=== PATIENT | female | born 1990 | race African-American/Black ===

== ENCOUNTER 2023-04-27 06:19 | Inpatient (IN) | payer MEDICARE ==
[~2023-04-27] VITALS: Ht 172.7 cm; Wt 87.1 kg
[~2023-04-27 06:19] MED LIST: AMLO10TA80 PO; ASPI-1406 PO; CINA90TA MT; COR12 PO; SACU1TAB PO; SEVE800T8 MT
[2023-04-27 06:25] VITALS: O2SAT 97
[2023-04-27] MEDS ORDERED: ONDANSETRON HCL 4MG/2ML INJ IV STA (06:35)
[2023-04-27] MEDS ORDERED: MORPHINE SULFATE 4 MG/ML CPJ (NOT FOR IM USE) IV STA (06:35)
[2023-04-27 08:27] LABS: INR 1.1; PROTHROMBIN TIME 11.6 sec (9.6-11.0)
[2023-04-27 08:32] LABS: ALANINE AMINOTRANSFERASE 16 IU/L (10-49); ASPARTATE AMINOTRANSFERASE 16 IU/L (<34); BILIRUBIN TOTAL 0.3 mg/dL (0.1-1.0); CARBON DIOXIDE 27 mEq/L (21-32); CHLORIDE 99 mEq/L (98-107); GLUCOSE 84 mg/dL (70-105); POTASSIUM 3.3 mEq/L (3.5-5.1); PROTEIN TOTAL 7.4 g/dL (6.0-8.3); SODIUM 138 mEq/L (136-145); UREA NITROGEN BLOOD 28 mg/dL (9-23)
[2023-04-27 08:36] LABS: BASOPHILS % 0.4 % (0.0-2.0); EOSINOPHILS % 1.9 % (0.0-5.0); HEMATOCRIT. 26.2 % (36.0-48.0); LYMPHOCYTES % 14.3 % (20.0-50.0); MEAN CORPUSCULAR HEMOGLOBIN 26.1 pg (28.0-32.0); MEAN CORPUSCULAR HGB CONC 30.6 g/dL (31.0-37.0); MEAN CORPUSCULAR VOLUME 85.3 fL (81.0-99.0); MEAN PLATELET VOLUME 7.7 fl (7.4-10.4); MONOCYTES % 11.9 % (2.0-8.0); NEUTROPHILS % 71.5 % (40.0-76.0); PLATELET 230 x1000/uL (130-400); RED BLOOD CELL COUNT 3.07 mill/uL (4.2-5.4); RED CELL DISTRIBUTION WIDTH 21.9 % (11.6-14.6)
[2023-04-27 08:38] LABS: CREATININE 7.3 mg/dL (0.6-1.0)
[2023-04-27 09:00] LABS: HCG SCREEN NEGATIVE
[2023-04-27] MEDS ORDERED: HYDRALAZINE 20MG/ML VIAL IV ONE (09:15)
[2023-04-27] MEDS ORDERED: MORPHINE SULFATE 4 MG/ML CPJ (NOT FOR IM USE) IV ONE (09:15)
[2023-04-27] MEDS ORDERED: IPRATROPIUM/ALBUTEROL 0.5-3(2.5)MG/3ML NEB NEB PRN (11:00)
[2023-04-27] MEDS ORDERED: DOCUSATE SODIUM 100MG CAPSULE PO PRN (11:00)
[2023-04-27] MEDS ORDERED: GUAIFENESIN 200MG/10ML SUGAR FREE UDC PO PRN (11:00)
[2023-04-27] MEDS ORDERED: ONDANSETRON HCL 4MG/2ML INJ IV PRN (11:00)
[2023-04-27] MEDS ORDERED: MAGNESIUM/ALUMINUM HYDROXIDE/SIMETHICONE 30ML UDC PO PRN (11:00)
[2023-04-27] MEDS ORDERED: NITROGLYCERIN 0.4MG TABLET SL SL PRN (11:00)
[2023-04-27] MEDS ORDERED: ACETAMINOPHEN 325MG TABLET PO PRN ×2 (11:00)
[2023-04-27] MEDS ORDERED: AMLODIPINE 5MG TABLET PO NR (11:30)
[2023-04-27 12:00] VITALS: BP 213/110; PULSE 102; RESP 21; TEMP 97.6
[2023-04-27] MEDS: NITROGLYCERIN OINT 1GM/INCH UDPKT TD SCH ×2 (12:00→22:00)
[2023-04-27] MEDS ORDERED: HYDRALAZINE 20MG/ML VIAL IV SCH (12:00)
[2023-04-27] MEDS ORDERED: HYDRALAZINE 20MG/ML VIAL IV PRN (12:45)
[2023-04-27] MEDS ORDERED: SEVELAMER CARBONATE 800 MG TABLET PO SCH (12:50)
[2023-04-27] MEDS ORDERED: HYDRALAZINE 10 MG in SODIUM CHLORIDE 0.9% 49.5 ML IV PRN (13:00)
[2023-04-27] MEDS: CLONIDINE 0.1MG TABLET PO PRN ×2 (13:03→22:03)
[2023-04-27] MEDS ORDERED: NALOXONE HCL 0.4MG/ML VIAL IV PRN (14:00)
[2023-04-27] MEDS: HYDRALAZINE HCL 50MG TABLET PO SCH ×2 (14:00→22:06)
[2023-04-27] MEDS ORDERED: TRAMADOL 50MG TABLET PO PRN (14:00)
[2023-04-27 14:52] LABS: IRON 41 ug/dL (50-170); T4 FREE 1.35 ng/dL (0.89-1.76); THYROID STIMULATING HORMONE 2.25 uIU/mL (0.55-4.78); TOTAL IRON BINDING CAPACITY 360 ug/dl (250-425)
[2023-04-27 18:00] VITALS: BP 177/80; PULSE 90; RESP 20; TEMP 97
[2023-04-27] MEDS ORDERED: MORPHINE SULFATE 2 MG/ML CPJ (NOT FOR IM USE) IV NR (19:15)
[2023-04-27 20:00] VITALS: BP 162/54; PULSE 100; RESP 20; TEMP 98.1
[2023-04-27] MEDS ORDERED: METOPROLOL TARTRATE 25MG TABLET PO SCH (21:00)
[2023-04-27] MEDS ORDERED: ZOLPIDEM TARTRATE 5MG TABLET PO PRN (21:00)
[2023-04-27] MEDS ORDERED: FAMOTIDINE 20MG TABLET PO SCH (21:00)
[2023-04-28] VITALS: BP 216/109; PULSE 100; RESP 20; TEMP 98.4
[2023-04-28] MEDS: HYDROCODONE/ACETAMINOPHEN 5/325MG TABLET PO PRN ×2 (01:27→01:54)
[2023-04-28 04:00] VITALS: BP 174/87
[2023-04-28] MEDS: NITROGLYCERIN OINT 1GM/INCH UDPKT TD SCH (06:00)
[2023-04-28] MEDS: HYDRALAZINE HCL 50MG TABLET PO SCH (06:00)
[2023-04-28 07:31] LABS: BASOPHILS % 0.5 % (0.0-2.0); EOSINOPHILS % 0.4 % (0.0-5.0); HEMATOCRIT. 23.4 % (36.0-48.0); HEMOGLOBIN. 7.4 g/dL (12.0-16.0); LYMPHOCYTES % 10.5 % (20.0-50.0); MEAN CORPUSCULAR HEMOGLOBIN 26.1 pg (28.0-32.0); MEAN CORPUSCULAR HGB CONC 31.7 g/dL (31.0-37.0); MEAN CORPUSCULAR VOLUME 82.3 fL (81.0-99.0); MEAN PLATELET VOLUME 7.5 fl (7.4-10.4); MONOCYTES % 10.4 % (2.0-8.0); NEUTROPHILS % 78.2 % (40.0-76.0); PLATELET 221 x1000/uL (130-400); RED BLOOD CELL COUNT 2.85 mill/uL (4.2-5.4); RED CELL DISTRIBUTION WIDTH 21.6 % (11.6-14.6); WHITE BLOOD COUNT 8.7 x1000/uL (4.5-11.0)
[2023-04-28 08:00] VITALS: BP 186/80; PULSE 100; RESP 20; TEMP 95.5
[2023-04-28] MEDS ORDERED: AMLODIPINE 10MG TABLET PO SCH (09:00)
[2023-04-28 09:06] LABS: ALANINE AMINOTRANSFERASE 8 IU/L (10-49); ALBUMIN 3.7 g/dL (3.2-4.8); BILIRUBIN TOTAL 0.3 mg/dL (0.1-1.0); CALCIUM 8.8 mg/dL (8.7-10.4); CARBON DIOXIDE 30 mEq/L (21-32); CHLORIDE 96 mEq/L (98-107); GLUCOSE 85 mg/dL (70-105); POTASSIUM 4.2 mEq/L (3.5-5.1); PROTEIN TOTAL 6.3 g/dL (6.0-8.3); SODIUM 138 mEq/L (136-145); UREA NITROGEN BLOOD 42 mg/dL (9-23)
[2023-04-28 09:08] LABS: ASPARTATE AMINOTRANSFERASE < 8 IU/L (<34); CREATININE 9.8 mg/dL (0.6-1.0)
[2023-04-28 09:18] LABS: PHOSPHORUS 7.3 mg/dL (2.5-4.9)
[2023-04-28 13:05] LABS: FOLIC ACID (FOLATE) SERUM 6.06 ng/mL (>5.38); VITAMIN B12 SERUM 311 pg/mL (211-911)
== END 2023-04-28 09:45 | disposition left against medical advice (07) | DRG 682 ==
LOC: ER 06:19 → 6EST 10:04 → EDBEDREQ 10:08
PROVIDERS: ADMIT Internal Medicine; ATTEND Internal Medicine
DX: I12.0 Hypertensive chronic kidney disease with stage 5 chronic kidney disease or end stage renal disease (principal); N18.6 End stage renal disease; I16.1 Hypertensive emergency; Z99.2 Dependence on renal dialysis; E87.6 Hypokalemia; F41.9 Anxiety disorder, unspecified; D63.8 Anemia in other chronic diseases classified elsewhere; H54.8 Legal blindness, as defined in USA; R74.8 Abnormal levels of other serum enzymes; N25.0 Renal osteodystrophy; Z53.29 Procedure and treatment not carried out because of patient's decision for other reasons; Z88.0 Allergy status to penicillin; Z90.5 Acquired absence of kidney
CPT/HCPCS: 36415; 74176; 80053; 82607; 82746; 83036; 83540; 83550; 83735; 84100; 84439; 84443; 84703; 85025; 99291; J0360; J2270; J2405

== ENCOUNTER 2023-10-04 10:21 | Emergency (ER) | payer MEDICARE ==
[~2023-10-04] VITALS: Ht 172.7 cm; Wt 118.0 kg
[2023-10-04 10:28] VITALS: TEMP 98.7; O2SAT 98
[2023-10-04 11:30] LABS: BASOPHILS % 0.8 % (0.0-2.0); EOSINOPHILS % 3.1 % (0.0-5.0); HEMATOCRIT. 33.2 % (36.0-48.0); HEMOGLOBIN. 10.2 g/dL (12.0-16.0); LYMPHOCYTES % 20.7 % (20.0-50.0); MEAN CORPUSCULAR HEMOGLOBIN 27.3 pg (28.0-32.0); MEAN CORPUSCULAR HGB CONC 30.6 g/dL (31.0-37.0); MEAN CORPUSCULAR VOLUME 89.4 fL (81.0-99.0); MEAN PLATELET VOLUME 8.4 fl (7.4-10.4); MONOCYTES % 11.9 % (2.0-8.0); NEUTROPHILS % 63.5 % (40.0-76.0); PLATELET 198 x1000/uL (130-400); RED BLOOD CELL COUNT 3.71 mill/uL (4.2-5.4); RED CELL DISTRIBUTION WIDTH 19.1 % (11.6-14.6); WHITE BLOOD COUNT 4.4 x1000/uL (4.5-11.0)
[2023-10-04 11:40] LABS: CHLORIDE 97 mEq/L (98-107); POTASSIUM 4.7 mEq/L (3.5-5.1); SODIUM 139 mEq/L (136-145)
[2023-10-04 11:41] LABS: CARBON DIOXIDE 30 mEq/L (21-32)
[2023-10-04 11:42] LABS: CALCIUM 9.3 mg/dL (8.7-10.4)
[2023-10-04 11:46] LABS: GLUCOSE 86 mg/dL (70-105); UREA NITROGEN BLOOD 37 mg/dL (9-23)
[2023-10-04 11:48] LABS: ALANINE AMINOTRANSFERASE 7 IU/L (10-49); ALBUMIN 3.9 g/dL (3.2-4.8); ASPARTATE AMINOTRANSFERASE 10 IU/L (<34)
[2023-10-04 11:49] LABS: BILIRUBIN TOTAL 0.3 mg/dL (0.1-1.0); PROTEIN TOTAL 6.9 g/dL (6.0-8.3)
[2023-10-04 11:56] LABS: HCG SCREEN NEGATIVE
[2023-10-04] MEDS ORDERED: MORPHINE SULFATE 4 MG/ML INJ (FOR IV/IM USE) IM ONE (13:00)
[2023-10-04 13:26] VITALS: BP 177/86; PULSE 96; RESP 16
[2023-10-04] MEDS: OXYCODONE HCL/ACETAMINOPHEN 5/325MG TABLET PO ONE (13:26)
== END 2023-10-04 14:31 | disposition left against medical advice (07) ==
LOC: ER 10:21
DX: R10.32 Left lower quadrant pain (principal); F41.9 Anxiety disorder, unspecified; I12.0 Hypertensive chronic kidney disease with stage 5 chronic kidney disease or end stage renal disease; N18.6 End stage renal disease; Z99.2 Dependence on renal dialysis; Z98.890 Other specified postprocedural states; Z88.0 Allergy status to penicillin; Z88.6 Allergy status to analgesic agent
CPT/HCPCS: 36415; 74176; 80053; 81025; 84703; 85025; 99284

== ENCOUNTER 2024-05-29 07:40 | Emergency (ER) | payer MEDICARE, MEDICAID ==
[~2024-05-29] VITALS: Ht 172.7 cm; Wt 105.0 kg
[~2024-05-29 07:40] MED LIST changes: +PROT40 MT
[2024-05-29 07:45] VITALS: BP 170/81; PULSE 90; RESP 18; TEMP 37.1; O2SAT 97
[2024-05-29] MEDS ORDERED: ACETAMINOPHEN 325MG TABLET PO ONE (08:00)
[2024-05-29] MEDS ORDERED: ACETAMINOPHEN 325MG TABLET PO PRN (10:00)
[2024-05-29] MEDS ORDERED: CLONIDINE 0.1MG TABLET PO PRN (10:00)
[2024-05-29] MEDS ORDERED: PANTOPRAZOLE SODIUM 40 MG/VIAL IV SCH (10:00)
[2024-05-29] MEDS ORDERED: ZOLPIDEM TARTRATE 5MG TABLET PO PRN (10:00)
[2024-05-29] MEDS ORDERED: ONDANSETRON HCL 4MG/2ML INJ IV PRN (10:00)
[2024-05-29] MEDS ORDERED: ENOXAPARIN 40MG/0.4ML SYR SUBCUT SCH (10:00)
[2024-05-29] MEDS ORDERED: IPRATROPIUM/ALBUTEROL 0.5-3(2.5)MG/3ML NEB NEB PRN (10:00)
[2024-05-29] MEDS ORDERED: HYDROCODONE/ACETAMINOPHEN 5/325MG TABLET PO PRN (10:00)
== END 2024-05-29 10:07 | disposition left against medical advice (07) ==
LOC: ER 07:40 → EDBEDREQ 09:22 → EDBEDREQTM 09:22 → ER 10:07
DX: R07.9 Chest pain, unspecified (principal); R06.02 Shortness of breath; R51.9 Headache, unspecified; R94.31 Abnormal electrocardiogram [ECG] [EKG]; I11.0 Hypertensive heart disease with heart failure; I50.9 Heart failure, unspecified; Z79.82 Long term (current) use of aspirin; Z79.899 Other long term (current) drug therapy; Z88.0 Allergy status to penicillin; Z88.5 Allergy status to narcotic agent; Z88.6 Allergy status to analgesic agent; Z99.2 Dependence on renal dialysis
CPT/HCPCS: 71045; 93005; 99291

== ENCOUNTER 2024-10-29 03:40 | Inpatient (IN) | payer MEDICARE, MEDICAID ==
[~2024-10-29] VITALS: Ht 167.6 cm; Wt 113.1 kg
[2024-10-29] VITALS (11 sets, daily range): BP systolic 123–185; BP diastolic 70–130; PULSE 70–88; RESP 13–20; TEMP 36.6–37.252; O2SAT 90–99
[~2024-10-29 03:40] MED LIST changes: -CINA90TA MT; +FLUC150T46 PO; -SEVE800T8 MT; +SEVE800T8 PO
[2024-10-29 05:29] LABS: BASOPHILS % 0.9 % (0.0-2.0); EOSINOPHILS % 2.2 % (0.0-5.0); HEMATOCRIT. 29.5 % (36.0-48.0); HEMOGLOBIN. 9.5 g/dL (12.0-16.0); LYMPHOCYTES % 37.1 % (20.0-50.0); MEAN PLATELET VOLUME 8.7 fl (7.4-10.4); MONOCYTES % 10.0 % (2.0-8.0); NEUTROPHILS % 49.8 % (40.0-76.0); PLATELET 176 x1000/uL (130-400); RED BLOOD CELL COUNT 3.58 mill/uL (4.2-5.4); RED CELL DISTRIBUTION WIDTH 18.7 % (11.6-14.6)
[2024-10-29 05:37] LABS: HCG SCREEN NEGATIVE
[2024-10-29 05:38] LABS: INR 1.0
[2024-10-29 05:40] LABS: ETHANOL BLOOD < 10 mg/dL (<10)
[2024-10-29 05:42] LABS: BILIRUBIN DIRECT < 0.1 mg/dL (<=3.0); BILIRUBIN TOTAL 0.2 mg/dL (0.1-1.0); PROTEIN TOTAL 6.9 g/dL (6.0-8.3)
[2024-10-29 05:45] LABS: ASPARTATE AMINOTRANSFERASE < 8 IU/L (<34); CREATININE 16.6 mg/dL (0.6-1.0); TROPONIN I HIGH SENSITIVITY 40 ng/L (3.0-34); UREA NITROGEN BLOOD 101 mg/dL (9-23)
[2024-10-29] MEDS: ONDANSETRON HCL 4MG/2ML INJ IV ONE (06:38)
[2024-10-29] MEDS: MORPHINE SULFATE 2 MG/ML INJ (NOT FOR IM USE) IV NR (06:38)
[2024-10-29] MEDS ORDERED: HYDRALAZINE 20MG/ML VIAL IV ONE (12:45)
[2024-10-29] MEDS ORDERED: ONDANSETRON HCL 4MG/2ML INJ IV PRN (13:00)
[2024-10-29] MEDS ORDERED: ALPR1TAB (13:04)
[2024-10-29] MEDS: FAMOTIDINE 20MG/2ML VIAL IV SCH (13:13)
[2024-10-29] MEDS: AMLODIPINE 10MG TABLET PO SCH (13:14)
[2024-10-29] MEDS: CARVEDILOL 12.5MG TABLET PO SCH (13:14)
[2024-10-29] MEDS ORDERED: SACUBITRIL/VALSARTAN 24MG/26MG TABLET PO SCH (13:15)
[2024-10-29] MEDS: CLONIDINE 0.2MG TABLET PO SCH (13:23)
[2024-10-29] MEDS ORDERED: NITROGLYCERIN 0.4MG TABLET SL SL PRN (14:45)
[2024-10-29] MEDS: ALPRAZOLAM 0.5 MG TABLET PO SCH (16:06)
[2024-10-29] MEDS: ACETAMINOPHEN 325MG TABLET PO PRN (16:07)
[2024-10-29] MEDS: SEVELAMER CARBONATE 800 MG TABLET PO SCH (19:16)
[2024-10-29] MEDS: HYDROCODONE/ACETAMINOPHEN 5/325MG TABLET PO SCH (19:16)
[2024-10-29 19:55] LABS: PHOSPHORUS 7.1 mg/dL (2.5-4.9)
[2024-10-29 20:05] LABS: TROPONIN I HIGH SENSITIVITY 37 ng/L (3.0-34)
[2024-10-29] MEDS: MORPHINE SULFATE 2 MG/ML INJ (NOT FOR IM USE) IV SCH (20:29)
[2024-10-29] MEDS ORDERED: OXYCODONE HCL 5MG TABLET PO SCH (20:30)
[2024-10-29] MEDS ORDERED: SACUBITRIL/VALSARTAN 49MG/51MG TABLET PO SCH (21:00)
[2024-10-29] MEDS: SACUBITRIL/VALSARTAN 49MG/51MG TABLET PO SCH (21:38)
[2024-10-29] MEDS ORDERED: ALPR1TAB PO (23:50)
[2024-10-29] MEDS ORDERED: SACU1TAB7 PO (23:50)
[2024-10-30] VITALS (11 sets, daily range): BP systolic 122–168; BP diastolic 55–88; PULSE 71–88; RESP 12–22; TEMP 36.3–36.83628; O2SAT 96–100
[2024-10-30] MEDS ORDERED: HYDROCODONE/ACETAMINOPHEN 5/325MG TABLET PO PRN (02:00)
[2024-10-30] MEDS: MORPHINE SULFATE 2 MG/ML INJ (NOT FOR IM USE) IV NR (04:08)
[2024-10-30] MEDS: ASPIRIN 81MG EC TABLET PO SCH (08:06)
[2024-10-30] MEDS: ISOSORBIDE MONONITRATE 30MG TABLET SR 24HR PO SCH (08:08)
[2024-10-30] MEDS ORDERED: VERAPAMIL HCL 2.5 MG/1 ML 2ML VIAL IV ONE (08:39)
[2024-10-30] MEDS ORDERED: HEPARIN 1000 UNITS/ML 10ML ONE (08:39)
[2024-10-30] MEDS ORDERED: IODIXANOL 320MG/ML 100 ML BOTTLE IV ONE (08:40)
[2024-10-30] MEDS ORDERED: LIDOCAINE HCL 1% 20ML VIAL ONE (08:40)
[2024-10-30] MEDS ORDERED: FENTANYL CITRATE/PF 50MCG/ML 2ML VIAL ONE (09:15)
[2024-10-30] MEDS ORDERED: MIDAZOLAM HCL 2 MG/2 ML VIAL ONE (09:15)
[2024-10-30] MEDS ORDERED: DIPHENHYDRAMINE 50MG/ML VIAL ONE (09:15)
[2024-10-30] MEDS ORDERED: ACETAMINOPHEN 325MG TABLET PO PRN (10:00)
[2024-10-30] MEDS ORDERED: ATROPINE SULFATE 1MG/10ML SYR IV PRN (10:00)
[2024-10-30] MEDS: TRAMADOL 50MG TABLET PO PRN (11:04)
[2024-10-30] MEDS ORDERED: NALOXONE HCL 0.4MG/ML VIAL IV PRN (14:00)
[2024-10-30] MEDS ORDERED: TRAMADOL 50MG TABLET PO PRN (14:30)
[2024-10-30] MEDS: MORPHINE SULFATE 4 MG/ML INJ (FOR IV/IM USE) IV PRN (14:53)
[2024-10-30] MEDS: DIPHENHYDRAMINE 50MG/ML VIAL IV SCH (19:21)
[2024-10-30] MEDS: PANTOPRAZOLE 40MG DR TABLET PO SCH (21:45)
[2024-10-30 22:12] LABS: BASOPHILS % 0.7 % (0.0-2.0); EOSINOPHILS % 2.5 % (0.0-5.0); HEMATOCRIT. 30.9 % (36.0-48.0); HEMOGLOBIN. 9.9 g/dL (12.0-16.0); LYMPHOCYTES % 34.0 % (20.0-50.0); MEAN PLATELET VOLUME 8.3 fl (7.4-10.4); MONOCYTES % 9.3 % (2.0-8.0); NEUTROPHILS % 53.5 % (40.0-76.0); PLATELET 187 x1000/uL (130-400); RED BLOOD CELL COUNT 3.71 mill/uL (4.2-5.4); RED CELL DISTRIBUTION WIDTH 18.5 % (11.6-14.6)
[2024-10-30 22:28] LABS: VITAMIN B12 SERUM 605 pg/mL (211-911)
[2024-10-30 22:36] LABS: FOLIC ACID (FOLATE) SERUM 3.64 ng/mL (>5.38)
[2024-10-30 23:24] LABS: HEPATITIS A AB IGM NEGATIVE (Negative)
[2024-10-30 23:25] LABS: HEPATITIS B CORE AB IGM NEGATIVE (Negative); HEPATITIS C AB NON REACTIVE (Neg) (Negative)
[2024-10-31] VITALS: BP 164/74; PULSE 78; RESP 18; TEMP 37; O2SAT 99
[2024-10-31 04:00] VITALS: PULSE 94; RESP 15; TEMP 36.4; O2SAT 97
[2024-10-31 08:00] VITALS: BP 177/74; PULSE 83; RESP 20; TEMP 36.7; O2SAT 98
[2024-10-31] MEDS ORDERED: FOLIC ACID 1MG TABLET PO SCH (11:00)
[2024-10-31 11:01] VITALS: BP 177/74; PULSE 83; TEMP 98.1; O2SAT 98
[2024-10-31] MEDS ORDERED: CARVEDILOL 12.5MG TABLET PO SCH (21:00)
== END 2024-10-31 13:00 | disposition home or self-care (01) | DRG 280 ==
LOC: ER 03:40 → EDBEDREQ 06:08 → 5EST 06:08 → EDBEDREQTM 06:08 → ENRESERV 10:11 → 3WST 23:21
PROVIDERS: ADMIT Internal Medicine; ATTEND Internal Medicine
PROC: 5A1D70Z Performance of Urinary Filtration, Intermittent, Less than 6 Hours Per Day (ICD-10-PCS; 2024-10-29)
PROC: 4A023N7 Measurement of Cardiac Sampling and Pressure, Left Heart, Percutaneous Approach (ICD-10-PCS; principal; 2024-10-30)
PROC: B211YZZ Fluoroscopy of Multiple Coronary Arteries using Other Contrast (ICD-10-PCS; 2024-10-30)
PROC: 5A1D70Z Performance of Urinary Filtration, Intermittent, Less than 6 Hours Per Day (ICD-10-PCS; 2024-10-30)
DX: I13.2 Hypertensive heart and chronic kidney disease with heart failure and with stage 5 chronic kidney disease, or end stage renal disease (principal); I50.43 Acute on chronic combined systolic (congestive) and diastolic (congestive) heart failure; I21.A1 Myocardial infarction type 2; N18.6 End stage renal disease; K92.1 Melena; I16.1 Hypertensive emergency; Z68.41 Body mass index [BMI] 40.0-44.9, adult; T39.016A Underdosing of aspirin, initial encounter; E66.9 Obesity, unspecified; E53.8 Deficiency of other specified B group vitamins; H54.8 Legal blindness, as defined in USA; I25.10 Atherosclerotic heart disease of native coronary artery without angina pectoris; M54.50 Low back pain, unspecified; G89.29 Other chronic pain; R10.84 Generalized abdominal pain; D64.9 Anemia, unspecified; I25.2 Old myocardial infarction; Z79.899 Other long term (current) drug therapy; Z87.11 Personal history of peptic ulcer disease; Z87.891 Personal history of nicotine dependence; Z88.0 Allergy status to penicillin; Z90.5 Acquired absence of kidney; Z91.148 Patient's other noncompliance with medication regimen for other reason; Y92.89 Other specified places as the place of occurrence of the external cause; Z99.2 Dependence on renal dialysis; Z88.8 Allergy status to other drugs, medicaments and biological substances; Z88.5 Allergy status to narcotic agent
CPT/HCPCS: 36415; 71045; 72100; 74176; 80048; 80076; 80320; 82607; 82746; 83540; 83550; 83735; 83880; 84100; 84425; 84484; 84703; 85025; 85044; 86705; 86709; 87340; 90935; 93005; 93306; 93458; 99285; A4606; C1769; C1887; C1893; J1200; J1308; J1644; J2003; J2060; J2250; J2270; J2405; J3010; J3490; Q9967; G0480